=== PATIENT | male | born 1945 | race Caucasian/White ===

== ENCOUNTER 2022-02-21 11:14 | Emergency (ER) | payer MEDICARE ==
[2022-02-21] MEDS ORDERED: traMADol HCl 50 MG TAB ONE (12:15)
[2022-02-21] MEDS ORDERED: Lidocaine 1% w/Epinephrine 1:100K 50 ML VIAL ONE (12:30)
[2022-02-21] MEDS ORDERED: Bacitracin 1 PK ONE ×2 (12:30→13:11)
[2022-02-21] MEDS ORDERED: Boostrix 0.5 ML (Tdap) VIAL (>/=7 yrs of age) ONE (12:30)
[2022-02-21] MEDS ORDERED: Sterile Water 10 ML ONE (12:57)
[2022-02-21] MEDS ORDERED: CEFAZOLIN 1 GM VIAL ONE (12:57)
== END 2022-02-21 14:09 | disposition home or self-care (01) ==
LOC: BURERS 11:14
DX: S51.821A Laceration with foreign body of right forearm, initial encounter (principal); S41.121A Laceration with foreign body of right upper arm, initial encounter; S21.119A Laceration without foreign body of unspecified front wall of thorax without penetration into thoracic cavity, initial encounter; S80.819A Abrasion, unspecified lower leg, initial encounter; I10 Essential (primary) hypertension; E11.9 Type 2 diabetes mellitus without complications; Z23 Encounter for immunization; Z87.891 Personal history of nicotine dependence; W26.8XXA Contact with other sharp object(s), not elsewhere classified, initial encounter
CPT/HCPCS: 12035; 90471; 90715; 96372; J0690